=== PATIENT | female | born 1970 | race Caucasian/White ===

== ENCOUNTER 2016-06-24 17:52 | Emergency (ER) | payer MEDICARE, OTHER ==
[~2016-06-24 17:52] MED LIST: AMBI5TAB PO; APIX5TAB PO; ASPI81TA82 PO; ATOR80TA PO; BACL10TA PO; FE T325T PO; GABA300C3 PO; HYDR-3129 PO; LATU40TA PO; LEVE500 PO; LEVO75TA3 PO; LORA-392 PO; RANI150T PO; REME30TA PO; TAB-TAB PO
--- NOTE | 2016-06-24 18:28 | PD ---
Data Data Orders Complete Blood Count With Diff (06/24/16 18:05) Comprehensive Metabolic Panel (06/24/16 18:05) Psych Screen (06/24/16 18:05) Drug Screen, Random Urine (06/24/16 18:05) [facility] Supervised Visit with JESSICA: Yes Narrative Course The history, exam, and medical decision-making in the associated midlevel provider note were completed with my assistance. I reviewed and agree with the findings presented. I attest that I had a [id number] encounter with the patient on the same day, and personally performed and documented my assessment and findings in the medical record. *My assessment and Findings: This is a 46-year-old female who has a history of bipolar disorder and prior stroke who was out with her parents and had a behavioral outburst because she wanted to go out to dinner and her parents didn' t want to because it was raining. Her parents were having some trouble controlling her and bystanders called the police. The police ultimately placed the patient under a Stein act and brought her to the hospital. The patient's family is not at all concerned about her safety at home and would like to take her home. There is no evidence that the patient has a harm to herself or others. This was merely a behavioral disturbance. They're hoping to go back to her psychiatrist to titrate her medications. Patient is very calm in the emergency department. She will be discharged home. The Stein act was lifted by me. Ros Merrill MD Jun 24, 2016 18:28
[2016-06-24 18:30] VITALS: BP 110/57; PULSE 74; RESP 16; TEMP 98.7; O2SAT 98
--- NOTE | 2016-06-24 18:31 | PD ---
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 The patient was seeing her neurologist Dr. Iyer for routine appointment with her mother. After the appointment the patient became upset at the mother because instead of going out to dinner the mother wanted to bring her home because was about a rain. She refused to get in the car and at some point police were called and they placed the patient under Stein act. On initial examination the patient is calm and cooperative. She denies being upset at this point in time. She denies any desire to hurt anyone else. The mother arrived shortly after the patient provides additional history. The patient had a stroke in September 2015 and in November 2015 she was taken off her psychiatric medications. She typically behaves well but she just had a behavioral outburst after the appointment this afternoon. The mother feels safe taking the patient home and she would prefer to take the patient home as opposed to keeping the patient under Stein act. She like the patient to see her psychiatrist to discuss being placed back on psychiatric medications. No other complaints at this time. PFSH Past Medical History Hx Anticoagulant Therapy: Yes Arthritis: No Blood Disorders: Yes Bipolar Disorder: Yes Anxiety: Yes Depression: Yes Heart Rhythm Problems: No Cancer: No Cardiovascular Problems: No High Cholesterol: No Chest Pain: No Congestive Heart Failure: No Cerebrovascular Accident: Yes Diabetes: No Diminished Hearing: No Deep Vein Thrombosis: Yes (LEFT ARM X2) Endocrine: Yes Gastrointestinal Disorders: Yes (GERD) GERD: Yes Genitourinary: No Headaches: No Hiatal Hernia: No Immune Disorder: No Musculoskeletal: No Neurologic: No Psychiatric: Yes (bipolar disorder) Reproductive: No Respiratory: No Integumentary: Yes (LEFT FOOT INFECTION) Immunizations Current: Yes Migraines: No Seizures: No Sickle Cell Disease: No Thyroid Disease: Yes (hypothyroidism) Ulcer: No Menopausal: No : 0 Past Surgical History Abdominal Surgery: No Arteriovenous Shunt: No Cardiac Surgery: No Ear Surgery: No Endocrine Surgery: No Eye Surgery: No Genitourinary Surgery: No Gynecologic Surgery: No Insulin Pump: No Oral Surgery: No Thoracic Surgery: No Other Surgery: Yes Social History Alcohol Use: No Tobacco Use: No Substance Use: No Allergies-Medications (Allergen,Severity, Reaction): Coded Allergies: Morphine (Verified Allergy, Severe, Anaphylaxis, 02/14/16) Prednisone (Verified Allergy, Severe, Anaphylaxis, 02/14/16) SWELLING OF FACE AND TONGUE Reported Meds & Prescriptions Reported Meds & Active Scripts Active Reported Lioresal (Baclofen) 10 Mg Tab 10 Mg PO BID Levothyroxine 75 mcg (Levothyroxine Sodium) 75 Mcg Tab 75 Mcg PO DAILY [place] 10-325 mg (Hydrocodone-Acetaminophen 10-325 mg) 1 Tab 1 Tab PO Q6H PRN Fe Tabs (Ferrous Sulfate) 325 Mg Tab 325 Mg PO DAILY Gabapentin 300 Mg Cap 300 Mg PO TID Keppra (Levetriacetam) 500 Mg Tab 500 Mg PO BID Latuda (Lurasidone HCl) 40 Mg Tab 40 Mg PO HS Ativan (Lorazepam) 0.5 Mg Tab 0.5 Mg PO Q6H Multivitamin (Multivitamins) 1 Tab Tab 1 Tab PO DAILY Remeron 30 mg (Mirtazapine) 30 Mg Tab 1 Tab PO HS Ranitidine 150 mg (Ranitidine HCl) 150 Mg Tab 1 Tab PO BID Atorvastatin 80 mg (Atorvastatin Calcium) 80 Mg Tab 80 Mg PO HS Ambien (Zolpidem Tartrate) 5 Mg Tab 5 Mg PO HS Aspir-81 (Aspirin) 81 Mg Tab 81 Mg PO DAILY Eliquis (Apixaban) 5 Mg Tab 5 Mg PO BID Review of Systems Except as stated in HPI: all other systems reviewed are Neg Physical Exam Narrative GENERAL: Pleasant well-developed well-nourished female in no acute distress SKIN: Warm and dry. HEAD: Atraumatic. Normocephalic. EYES: Pupils equal and round. No scleral icterus. No injection or drainage. ENT: No nasal bleeding or discharge. Mucous membranes pink and moist. NECK: Trachea midline. No JVD. CARDIOVASCULAR: Regular rate and rhythm. No murmur appreciated. RESPIRATORY: No accessory muscle use. Clear to auscultation. Breath sounds equal bilaterally. GASTROINTESTINAL: Abdomen soft, non-tender, nondistended. Hepatic and splenic margins not palpable. MUSCULOSKELETAL: No obvious deformities. 4 out of 5 muscle strength right arm, right leg NEUROLOGICAL: Awake and alert. No obvious cranial nerve deficits. Motor grossly within normal limits. Mild aphasia, right-sided facial droop. Chronic. PSYCHIATRIC: Appropriate mood and affect Data Data Last Documented VS Vital Signs Date Time Temp Pulse Resp B/P Pulse Ox O2 Delivery O2 Flow Rate FiO2 06/24/16 18:30 98.7 74 16 110/57 98 Orders MDM Medical Decision Making Medical Screen Exam Complete: Yes Emergency Medical Condition: Yes Medical Record Reviewed: Yes Differential Diagnosis Behavior outburst, bipolar disorder, acute psychosis, chest retraction Narrative Course The patient does not appear to be a threat to herself or anyone else. The mother for further the patient's Stein act be lifted and the patient have follow -up as an outpatient with her psychiatrist. This seems very reasonable in this situation. The patient is very calm and cooperative. Stein act is being lifted by Dr. Merrill and the patient is being discharged. Diagnosis Primary Impression: Outbursts of explosive behavior Referrals: Psychiatrist Additional Instructions: Follow-up with a psychiatrist as an outpatient to discuss the need for new medications. If symptoms are worsening, if you feel unsafe at home or to angry to stay at home, return to the emergency room. Med/Other Pt SpecificInfo: No Change to Meds Disposition: 01 DISCHARGE HOME Condition: Stable Ankur Carbajal Jun 24, 2016 18:31
--- NOTE | 2016-06-24 18:43 | PD ---
HPI Chief Complaint: Psychiatric Symptoms PFSH Past Medical History Hx Anticoagulant Therapy: Yes Arthritis: No Blood Disorders: Yes Bipolar Disorder: Yes Anxiety: Yes Depression: Yes Heart Rhythm Problems: No Cancer: No Cardiovascular Problems: No High Cholesterol: No Chest Pain: No Congestive Heart Failure: No Cerebrovascular Accident: Yes Diabetes: No Diminished Hearing: No Deep Vein Thrombosis: Yes (LEFT ARM X2) Endocrine: Yes Gastrointestinal Disorders: Yes (GERD) GERD: Yes Genitourinary: No Headaches: No Hiatal Hernia: No Immune Disorder: No Musculoskeletal: No Neurologic: No Psychiatric: Yes (bipolar disorder) Reproductive: No Respiratory: No Integumentary: Yes (LEFT FOOT INFECTION) Immunizations Current: Yes Migraines: No Seizures: No Sickle Cell Disease: No Thyroid Disease: Yes (hypothyroidism) Ulcer: No Menopausal: No : 0 Past Surgical History Abdominal Surgery: No Arteriovenous Shunt: No Cardiac Surgery: No Ear Surgery: No Endocrine Surgery: No Eye Surgery: No Genitourinary Surgery: No Gynecologic Surgery: No Insulin Pump: No Oral Surgery: No Thoracic Surgery: No Other Surgery: Yes Social History Alcohol Use: No Tobacco Use: No Substance Use: No Allergies-Medications (Allergen,Severity, Reaction): Coded Allergies: Morphine (Verified Allergy, Severe, Anaphylaxis, 02/14/16) Prednisone (Verified Allergy, Severe, Anaphylaxis, 02/14/16) SWELLING OF FACE AND TONGUE Reported Meds & Prescriptions Reported Meds & Active Scripts Active Reported Lioresal (Baclofen) 10 Mg Tab 10 Mg PO BID Levothyroxine 75 mcg (Levothyroxine Sodium) 75 Mcg Tab 75 Mcg PO DAILY [place] 10-325 mg (Hydrocodone-Acetaminophen 10-325 mg) 1 Tab 1 Tab PO Q6H PRN Fe Tabs (Ferrous Sulfate) 325 Mg Tab 325 Mg PO DAILY Gabapentin 300 Mg Cap 300 Mg PO TID Keppra (Levetriacetam) 500 Mg Tab 500 Mg PO BID Latuda (Lurasidone HCl) 40 Mg Tab 40 Mg PO HS Ativan (Lorazepam) 0.5 Mg Tab 0.5 Mg PO Q6H Multivitamin (Multivitamins) 1 Tab Tab 1 Tab PO DAILY Remeron 30 mg (Mirtazapine) 30 Mg Tab 1 Tab PO HS Ranitidine 150 mg (Ranitidine HCl) 150 Mg Tab 1 Tab PO BID Atorvastatin 80 mg (Atorvastatin Calcium) 80 Mg Tab 80 Mg PO HS Ambien (Zolpidem Tartrate) 5 Mg Tab 5 Mg PO HS Aspir-81 (Aspirin) 81 Mg Tab 81 Mg PO DAILY Eliquis (Apixaban) 5 Mg Tab 5 Mg PO BID Data Data Last Documented VS Vital Signs Date Time Temp Pulse Resp B/P Pulse Ox O2 Delivery O2 Flow Rate FiO2 06/24/16 18:30 98.7 74 16 110/57 98 Orders Ankur Carbajal Jun 24, 2016 18:43
== END 2016-06-24 18:53 | disposition home or self-care (01) ==
LOC: NEDAMB 17:52
DX: F91.9 Conduct disorder, unspecified (principal); F31.9 Bipolar disorder, unspecified; I69.320 Aphasia following cerebral infarction; I69.392 Facial weakness following cerebral infarction; E03.9 Hypothyroidism, unspecified; Z79.01 Long term (current) use of anticoagulants
CPT/HCPCS: 99283

== ENCOUNTER 2017-02-02 19:10 | Emergency (ER) | payer MEDICARE, OTHER ==
[2017-02-02 19:18] VITALS: BP 126/72; PULSE 97; RESP 16; TEMP 98.8; O2SAT 96
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
--- NOTE | 2017-02-02 20:21 | RADRPT ---
EXAM DATE/TIME: 02/02/2017 19:59 [facility] COMPARISON: CT BRAIN W/O CONTRAST, February 14, 2016, 2:15. INDICATIONS : Trauma. Injury left parietal. RADIATION DOSE: 58.48 CTDIvol (mGy) MEDICAL HISTORY : Cerebrovascular disease. SURGICAL HISTORY : None. ENCOUNTER: Initial ACUITY: 1 day PAIN SCALE: 8/10 LOCATION: Left parietal TECHNIQUE: Multiple contiguous axial images were obtained of the head. Using automated exposure control and adj ustment of the mA and/or kV according to patient size, radiation dose was kept as low as reasonably a chievable to obtain optimal diagnostic quality images. DICOM format image data is available electro nically for review and comparison. FINDINGS: CEREBRUM: The ventricles are normal for age. No evidence of midline shift, mass lesion, hemorrhage or acute in farction. No extra-axial fluid collections are seen. An old infarct is again seen in the left middle cerebral artery distribution. POSTERIOR FOSSA: The cerebellum and brainstem are intact. The 4th ventricle is midline. The cerebellopontine angle i s unremarkable. EXTRACRANIAL: The visualized portion of the orbits is intact. SKULL: The calvaria is intact. No evidence of skull fracture. CONCLUSION: No acute intracranial abnormality. 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 Chuy Molina MD on February 02, 2017 at 20:19 Board Certified Radiologist. This report was verified electronically.
--- NOTE | 2017-02-02 20:25 | RADRPT ---
EXAM DATE/TIME: 02/02/2017 20:09 [facility] COMPARISON: No previous studies available for comparison. INDICATIONS : Left knee pain since twisting in 1 week ago. MEDICAL HISTORY : Cerebrovascular disease. Deep venous thrombosis. Gastroesophageal reflux disease.Hypothyroid. SURGICAL HISTORY : None. ENCOUNTER: Initial ACUITY: 1 week PAIN SCORE: 4/10 LOCATION: Left knee. FINDINGS: Four view examination of the left knee demonstrates no evidence of fracture or dislocation. Bony min eralization is normal. The articular surfaces are intact. The suprapatellar soft tissues have a nor mal configuration. CONCLUSION: Intact left knee. Chuy Molina MD on February 02, 2017 at 20:24 Board Certified Radiologist. This report was verified electronically.
[2017-02-02] MEDS ORDERED: LEVO75TA3 PO (20:42)
[2017-02-02] MEDS ORDERED: REME30TA PO (20:42)
[2017-02-02] MEDS ORDERED: APIX5TAB PO (20:42)
[2017-02-02] MEDS ORDERED: ASPI81CH CHEW (20:42)
[2017-02-02] MEDS ORDERED: RANI150T PO (20:42)
[2017-02-02] MEDS ORDERED: GABA300C5 PO (20:42)
[2017-02-02] MEDS ORDERED: LURA40 PO (20:42)
[2017-02-02] MEDS ORDERED: LEVE500 PO (20:42)
[2017-02-02] MEDS ORDERED: LORA-392 PO (20:42)
[2017-02-02] MEDS ORDERED: ATOR1TAB18 PO (20:42)
[2017-02-02] MEDS ORDERED: AMBI5TAB PO (20:42)
== END 2017-02-02 21:42 | disposition home or self-care (01) ==
LOC: PHED 19:10
DX: S09.90XA Unspecified injury of head, initial encounter (principal); S83.92XA Sprain of unspecified site of left knee, initial encounter; E03.9 Hypothyroidism, unspecified; I69.320 Aphasia following cerebral infarction; I69.351 Hemiplegia and hemiparesis following cerebral infarction affecting right dominant side; W22.8XXA Striking against or struck by other objects, initial encounter; X50.1XXA Overexertion from prolonged static or awkward postures, initial encounter; Z79.01 Long term (current) use of anticoagulants; Z86.2 Personal history of diseases of the blood and blood-forming organs and certain disorders involving the immune mechanism; Z86.59 Personal history of other mental and behavioral disorders; Z86.718 Personal history of other venous thrombosis and embolism; Z87.19 Personal history of other diseases of the digestive system; Z87.2 Personal history of diseases of the skin and subcutaneous tissue
CPT/HCPCS: 70450; 73564; 99284